=== PATIENT | female | born 1990 | race Caucasian/White ===

== ENCOUNTER 2016-11-21 14:53 | Emergency (ER) | payer OTHER ==
[2016-11-21 16:32] LABS: HEMOGLOBIN 12.8 gm/dl (12.3-15.3); RED BLOOD COUNT 4.34 M/UL (4.00-5.10); WHITE BLOOD COUNT 7.1 K/UL (4.5-11.0)
[2016-11-21 16:56] LABS: BUN/CREATININE RATIO 13 (0-10)
== END 2016-11-21 19:00 | disposition home or self-care (01) ==
LOC: ER1 14:53
PROVIDERS: Family Medicine
DX: N39.0 Urinary tract infection, site not specified (principal); L03.113 Cellulitis of right upper limb; M79.1 Myalgia; R06.02 Shortness of breath; F17.210 Nicotine dependence, cigarettes, uncomplicated
CPT/HCPCS: 36415; 71010; 80053; 82550; 82553; 83874; 84484; 84703; 85025; 85379; 93005; 99283

== ENCOUNTER 2020-11-07 00:11 | Emergency (ER) | payer OTHER ==
[~2020-11-07 00:11] MED LIST: BROMFED DM COU473 ML PO; ONDANSETRON ODT4 MG PO; ZOFRAN4 MG PO
[2020-11-07 02:06] LABS: HEMOGLOBIN 13.5 gm/dl (12.3-15.3); RED BLOOD COUNT 4.63 M/UL (4.00-5.10); WHITE BLOOD COUNT 12.9 K/UL (4.5-11.0)
[2020-11-07 02:26] LABS: BUN/CREATININE RATIO 11 (0-10)
== END 2020-11-07 06:00 | disposition home or self-care (01) ==
LOC: ER1 00:11
PROVIDERS: Family Medicine
DX: R10.12 Left upper quadrant pain (principal); F17.210 Nicotine dependence, cigarettes, uncomplicated
CPT/HCPCS: 80053; 81001; 82550; 82553; 84484; 84703; 85025; 93005; 96374; 99284; J1885; J7030; Q9967

== ENCOUNTER 2020-12-01 18:38 | Emergency (ER) | payer OTHER ==
[2020-12-01 20:20] LABS: HEMOGLOBIN 13.2 gm/dl (12.3-15.3); RED BLOOD COUNT 4.46 M/UL (4.00-5.10); WHITE BLOOD COUNT 9.8 K/UL (4.5-11.0)
[2020-12-01 20:49] LABS: BUN/CREATININE RATIO 8 (0-10)
[2020-12-01] MEDS ORDERED: ASPIRIN81 MG PO (23:20)
== END 2020-12-01 23:27 | disposition home or self-care (01) ==
LOC: ER1 18:38
PROVIDERS: Nurse Practitioner
DX: R07.9 Chest pain, unspecified (principal)
CPT/HCPCS: 71046; 80053; 80307; 81001; 82550; 82553; 83735; 83874; 84484; 84703; 85025; 85379; 93005; 99285